=== PATIENT | male | born 1970 | race Caucasian/White ===

== ENCOUNTER 2016-04-21 22:08 | Emergency (ER) | payer OTHER, MEDICARE ==
[2016-04-21 22:14] VITALS: BP 122/77
--- NOTE | 2016-04-21 22:40 | ED GENERAL ADULT ---
History of Present Illness General Chief Complaint: General Adult Stated Complaint: NEEDS PERSCRIPTIONS Source: patient, old records Exam Limitations: no limitations Vital Signs & Intake/Output Vital Signs & Intake/Output Vital Signs Date Time Temp Pulse Resp B/P Pulse O2 O2 Flow FiO2 Ox Delivery Rate 04/214 97.4 81 16 122/77 96 Room Air Allergies Coded Allergies: Penicillins (UNKNOWN 04/21/16) Triage Note: TRIAGE; PT TO ED FOR MEDICATION REFILL. STATES HE WAS PRESCRIBED IN [place], AND TRIED TO FILL IT HERE BUT TOLD HE CANT. LOOKING FOR ATENOLOL 25MG AND AMBIEN 10MG. PT IS DEAF, CAN COMMUNICATE WITH WRITING AT THIS TIME. Triage Nurses Notes Reviewed? yes Onset: Abrupt Duration: day(s): (1), constant Timing: recent history Injury Environment: home Severity: mild Severity Numbers: 1 No Modifying Factors: none Associated Symptoms: DENIES HPI: Is a 45-year-old male hearing-impaired with history of hypertension presents requesting refill of his atenolol and Ambien. The patient states that he lives in [place] and ran out of his medications when he came down here. He is currently staying with his family for the next 3 weeks. The patient denies any symptoms at this time no chest pain shortness of breath abdominal pain nausea vomiting diarrhea. There are no modifying factors or associated symptoms otherwise. (BROOKE KYLE) Reconcile Medications Atenolol 25 MG TABLET 1 TAB PO DAILY htn Zolpidem Tartrate (Ambien) 10 MG TABLET 1 TAB PO QHS INSOMNIA (MIKE HERNANDEZ,SCOTT) Past History Travel History Traveled to [place] past 21 day No Medical History Any Pertinent Medical History? see below for history EENT: HEARING IMPAIRED Cardiovascular: hypertension Surgical History Surgical History: non-contributory Psychosocial History What is your primary language Kazakh Sign Language Tobacco Use: Never used Family History Hx Contributory? No (BROOKE KYLE) Review of Systems Review of Systems Constitutional: Reports: see HPI. All Other Systems: Reviewed and Negative Comments Review of systems: See HPI, All other systems negative. Constitutional, no chills no fever, no malaise HEENT: No visual changes no sore throat no congestion Cardiovascular: No chest pain , no palpitation Skin, no rashes, no change in skin Respiratory: No dyspnea no cough no sputum GI: No nausea no vomiting, no diarrhea : No dysuria No hematuria, no frequency, no discharge Muscle skeletal: No joint pain, no joint swelling, no back pain Neurologic: no headache Psych: No stress Heme/endocrine: No bruising no bleeding Immunology: No lymphadenopathy (BROOKE KYLE) Physical Exam Physical Exam General Appearance: well developed/nourished, no apparent distress, alert, awake Comments: Well-developed well-nourished patient in no apparent distress. HEENT: Atraumatic, extraocular motion intact Neck: Supple, FROM, Back: FROM Cardiovascular: Regular rate and rhythms no murmurs rubs Respiratory: C No respiratory distress. Patient speaking in full complete sentences. Breath sounds clear to auscultation bilaterally: NO W/R/R Extremities: full range of motion Neuro: Alert and oriented x3 Skin: Warm & dry;No appreciable rash on exposed skin Psych: Mood affect normal, normal memory normal judgment. Core Measures ACS in differential dx? No CVA/TIA Diagnosis: No Severe Sepsis Present: No Septic Shock Present: No (BROOKE KYLE) Progress Differential Diagnoses I considered the following diagnoses in my evaluation of the patient: Medication refill, hypertensive urgency emergency Plan of Care: Prescriptions for atenolol Ambien provided advised close follow up with his primary care return with any concerns he feels comfortable plan cleared for discharge Initial ED EKG: none (BROOKE KYLE) Departure Departure Time of Disposition: 2243 Disposition: HOME OR SELF CARE Condition: Stable Clinical Impression Primary Impression: Medication refill Referrals: PATIENT HAS NO PRIMARY CARE DR (PCP/Family) Additional Instructions: take your medications as prescribed. return with any concerns. Departure Forms: Customer Survey General Discharge Information Prescriptions: Current Visit Scripts Atenolol 1 TAB PO DAILY #30 TAB Zolpidem Tartrate (Ambien) 1 TAB PO QHS #30 TAB (BROOKE KYLE) PA/POULTRY KILLER Co-Sign Statement Statement: ED Attending supervision documentation- [] I saw and evaluated the patient. I have also reviewed all the pertinent lab results and diagnostic results. I agree with the findings and the plan of care as documented in the PA's/POULTRY KILLER's documentation. x I have reviewed the ED Record and agree with the PA's/POULTRY KILLER's documentation. [] Additions or exceptions (if any) to the PAs/POULTRY KILLER's note and plan are summarized below: [] (MIKE HERNANDEZ,SCOTT) Critical Care Note Critical Care Note Critical Care Time: non-applicable (BROOKE KYLE)
[2016-04-21] MEDS ORDERED: ATENOLOL25 M1 PO (22:46)
[2016-04-21] MEDS ORDERED: AMBIEN10 M1 PO (22:46)
== END 2016-04-21 22:50 ==
LOC: ERH 22:08
DX: Z76.0 Encounter for issue of repeat prescription (principal)
CPT/HCPCS: 99281